=== PATIENT | female | born 1950 | race Caucasian/White ===

== ENCOUNTER 2017-08-25 10:54 | Day surgery (SDC) | payer MEDICARE, OTHER ==
[2017-08-17 10:38] VITALS: BMI 34.0
[~2017-08-25 10:54] MED LIST: ALPRAZolam 0.25 MG TAB PO PRN; ALPRAZolam 0.5 MG TAB PO PRN; ASPIRIN 325 MG TAB PO STA; ATORVASTATIN 80 MG TAB PO STA; NITROGLYCERIN SL TABS 0.4 MG TAB SUBLINGUAL PRN; SODIUM CHLORIDE 0.9% 1,000 ML in EMPTY BAG 1 BAG IV ONE
[2017-08-25 11:37] LABS: Glucose,Whole Blood 175 mg/dL (75-99)
[2017-08-25 11:39] LABS: Anisocytosis Slight; Basophils % (A) 1 %; Eosinophils # (A) 0.2 k/uL (0-0.7); Eosinophils % (A) 3 %; HCT 36.5 % (34.0-46.0); HGB 11.7 gm/dL (11.4-16.0); Lymphocytes # (A) 1.7 k/uL (1.0-4.8); Lymphocytes % (A) 24 %; MCH 26.3 pg (25.0-35.0); MCV 82.1 fL (80.0-100.0); Mean Platelet Volume 7.4; Monocytes # (A) 0.3 k/uL (0-1.0); Monocytes % (A) 4 %; Neutrophils # (A) 4.7 k/uL (1.3-7.7); Neutrophils % (A) 67 %; Platelet Count 210 k/uL (150-450); RBC 4.45 m/uL (3.80-5.40); RDW 16.6 % (11.5-15.5)
[2017-08-25 11:49] LABS: Potassium 4.8 mmol/L (3.5-5.1)
[2017-08-25] MEDS ORDERED: fentaNYL (PF) 50 MCG/ML 2 ML AMP ONE (11:51)
[2017-08-25] MEDS ORDERED: diphenhydrAMINE 50 MG/ML 1 ML VIAL ONE (11:51)
[2017-08-25] MEDS ORDERED: LIDOCAINE 1% INJ 10MG/ML (20 ML MDV) ONE (11:51)
[2017-08-25] MEDS ORDERED: diphenhydrAMINE 50 MG/ML 1 ML VIAL IVP ONE (12:25)
[2017-08-25] MEDS ORDERED: fentaNYL (PF) 50 MCG/ML 2 ML AMP IV ONE (12:27)
[2017-08-25] MEDS ORDERED: LIDOCAINE 1% (PF) 10MG/ML VIAL SQ ONE (12:32)
[2017-08-25] MEDS ORDERED: BIVALIRUDIN 250 MG in SODIUM CHLORIDE 0.9% 50 ML IV ONE (12:45)
[2017-08-25] MEDS ORDERED: BIVALIRUDIN BOLUS 250 MG/50 ML IV ONE (12:45)
[2017-08-25] MEDS ORDERED: IOPAMIDOL-370 125ML BTL INJ ONE (12:55)
[2017-08-25] MEDS ORDERED: ATROPINE SULFATE 0.1 MG/ML 10ML SYRINGE IV PRN (13:05)
[2017-08-25] MEDS ORDERED: RX INFO: IV CONTRAST WAS GIVEN 1 EACH MISC MISCELLANE PRN (13:05)
[2017-08-25] MEDS ORDERED: ZOLPIDEM 5 MG TAB PO PRN (13:05)
[2017-08-25] MEDS ORDERED: NITROGLYCERIN SL TABS 0.4 MG TAB SUBLINGUAL PRN (13:05)
[2017-08-25] MEDS ORDERED: MAG HYDROX/AL HYDROX/SIMETH 30 ML CUP PO PRN (13:05)
[2017-08-25] MEDS ORDERED: SERTRALINE 50 MG TAB PO PRN (13:07)
[2017-08-25] MEDS ORDERED: SODIUM CHLORIDE 0.9% 1,000 ML IV SCH (13:15)
--- NOTE | 2017-08-25 14:23 | CC ---
CARDIAC CATHETERIZATION REPORT Mrs. Steven is a 66-year-old female with known history of hypertension, hyperlipidemia, diabetes mellitus, history of coronary artery disease, who recently had an abnormal myocardial perfusion imaging. In view of her prior history and results of her testing recommendation made regarding cardiac catheterization. The procedures, risks and complication were discussed with the patient who is in full understanding and agreement. 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 Using Xylocaine anesthesia and Seldinger technique, a a 6-Zimbabwean sheath was introduced in the right femoral artery. Selective right and left coronary angiography performed with 6-Zimbabwean 4 bend right and left Chantel catheter. Multiple views of the coronary artery including hemiaxial views obtained. Following that the 6-Zimbabwean right Chantel was used to cannulate the saphenous vein graft to the right coronary artery, diagonal branch and QUINN to LAD. Images of the grafts were obtained. Left ventricle end-diastolic pressure was calculated using the right Chantel catheter. Following that, the catheter was removed. Images were reviewed. FINDINGS: Left Main: This is a large-sized vessel bifurcating into left circumflex, left anterior descending artery. Left main coronary artery has no evidence of high-grade stenosis. Left Anterior Descending Artery: This vessel is totally occluded after the takeoff of the first diagonal branch. There is no antegrade flow. The first diagonal branch has a 70-80% stenosis proximally. The rest of the vessel has no high-grade stenosis. Left Circumflex: This is a nondominant vessel giving rise to proximal obtuse marginal branch. After the takeoff of the first obtuse marginal branch the vessel is totally occluded with slow filling of the second obtuse marginal branch. Right Coronary Artery: This vessel is totally occluded in mid segment with no antegrade flow. QUINN to LAD: This graft is patent. The distal anastomotic site is patent. The flow in the LAD is brisk. Saphenous Vein Graft to the Diagonal Branch: The distal anastomotic site is patent. The flow into the diagonal branch is brisk. There is no evidence of obstructive coronary artery disease. Saphenous Vein Graft to the Right Coronary Artery: The proximal distal anastomotic site are patent. In the mid segment of the body there is a 99% eccentric plaque. The rest of the vessel has mild intimal disease without any evidence of high-grade stenosis. Left Ventriculogram: Left ventriculogram is not performed. Hemodynamics: There was no gradient across the aortic valve. The left ventricle end- diastolic pressure is 60 mmHg. CONCLUSION: 1. Severe triple-vessel disease. 2. Critical stenosis involving the body of the saphenous vein graft to the right coronary artery. 3. Patent QUINN to LAD. 4. Patent saphenous vein graft to diagonal branch. RECOMMENDATION: In view of finding anatomy, I recommend proceeding with angioplasty and stenting of the saphenous vein graft to the right coronary artery. The procedures, risks and complications were discussed with the patient who is in full understanding and agreement. MMODL / IJN: [id number] /
--- NOTE | 2017-08-25 14:26 | PTCA ---
PERCUTANEOUSTRANS CORORONARY ANGIOGRAPHY Ms. Birmingham is a 66-year-old female with known history of coronary disease who presented with abnormal myocardial perfusion imaging was found to have critical stenosis involving the mid segment of the body of the saphenous vein graft to the right coronary artery. In view of that, recommendation was made regarding angioplasty and stenting. The procedures, risks and complications were discussed with the patient who is in full understanding and agreement. PROCEDURE: A 6-English right coronary bypass guiding catheter introduced into the system. After cannulating the ostium of the graft. The 0.014 advanced medium weight J-wire was advanced across the lesion and positioned distally. Then a 3.25 x 12 mm Xience Alpine stent was advanced, deployed and post dilated at 16 atmospheres. After the last inflation, the guidewire and the balloon was withdrawn back in the guiding catheter. Images were obtained and repeated. Those images reveal stable successful stenting. At that point, the guiding catheter, the balloon and the guidewire were removed. The sheath was removed. Hemostasis was obtained with deployment of an Angio-Seal. There was no immediate complication. The patient was returned to her room in stable condition. Of note, the patient had no significant chest discomfort with the inflations. She received Angiomax per protocol. RESULTS: Successful stenting of the body of the saphenous vein graft to the right coronary artery with reduction of stenosis from 99% to 0%. RECOMMENDATION: Patient will be continued on aspirin, Plavix, beta steve, and statin. The importance of dual antiplatelet treatment was discussed with the patient and her family who are in full understanding and agreement. Duration of procedure is 29 minutes. MMOCHOAL / YINGN: [id number] /
[2017-08-25 17:22] VITALS: RESP 16
[2017-08-25] MEDS: CARVEDILOL 12.5 MG TAB PO SCH (17:26)
[2017-08-25 21:05] LABS: Glucose,Whole Blood 177 mg/dL (75-99)
[2017-08-26 06:02] LABS: Glucose,Whole Blood 134 mg/dL (75-99)
[2017-08-26 06:05] LABS: Calcium 8.8 mg/dL (8.4-10.2); Potassium 4.3 mmol/L (3.5-5.1)
[2017-08-26] MEDS: CARVEDILOL 12.5 MG TAB PO SCH (06:27)
--- NOTE | 2017-08-26 08:12 | PN ---
PROGRESS NOTE Mrs. Steven is a 66-year-old female with known history of coronary artery disease status post coronary artery bypass grafting who presented with abnormal myocardial perfusion imaging, underwent cardiac catheterization, was found to have significant obstructive disease involving the saphenous vein graft to the right coronary artery, underwent stenting of that vessel. She is doing well this morning, ambulating without difficulty, denying any chest pain. Her breathing has been stable. She denies any dizziness or palpitation. She has been ambulating. She continues to be on aspirin once a day, amlodipine 10 mg daily, Lipitor 80 mg daily, Coreg 25 mg twice a day, Plavix 75 mg daily, lisinopril 20 mg daily, sertraline 50 mg daily. PHYSICAL EXAMINATION: Blood pressure 134/70 with a heart rate in 60s. LUNGS: Clear. HEART: Regular rate and rhythm. S1, S2. No S3. No rub. ABDOMEN: Soft, nontender. Right groin, no hematoma. LAB DATA: Lab data revealed BUN and creatinine 33 and 1.3, improved compared to yesterday. Potassium 4.3. EKG no acute changes. IMPRESSION: 1. Status post stenting of the saphenous vein graft to the right coronary artery. 2. History of coronary artery bypass grafting. 3. Hypertension. 4. Hyperlipidemia. 5. Diabetes mellitus. RECOMMENDATION: Patient will be able to be discharged home today and followed as an outpatient. MMODL / IJN: [id number] /
[2017-08-26] MEDS ORDERED: ASPIRIN 81 MG PO SCH (09:00)
[2017-08-26] MEDS ORDERED: amLODIPine 10 MG TAB PO SCH (09:00)
[2017-08-26] MEDS ORDERED: CLOPIDOGREL 75 MG TAB PO SCH (09:00)
[2017-08-26] MEDS ORDERED: LISINOPRIL 20 MG TAB PO SCH (09:00)
[2017-08-26] MEDS ORDERED: ATORVASTATIN 80 MG TAB PO SCH (09:00)
[2017-08-26] MEDS ORDERED: Empagliflozin/Linagliptin [Glyxambi 25 Mg-5 Mg Tablet] PO SCH (09:00)
[2017-08-26 09:32] VITALS: BP 134/56; PULSE 80; TEMP 97.2
== END 2017-08-26 10:40 | disposition home or self-care (01) ==
LOC: CATHCVL 10:54 → 6SEL 12:58 → CATHCVL 08-26 10:40
PROVIDERS: ATTEND Internal Medicine Interventional Cardiology
DX: I25.810 Atherosclerosis of coronary artery bypass graft(s) without angina pectoris (principal); I25.10 Atherosclerotic heart disease of native coronary artery without angina pectoris; I25.82 Chronic total occlusion of coronary artery; R00.1 Bradycardia, unspecified; R94.39 Abnormal result of other cardiovascular function study; E11.22 Type 2 diabetes mellitus with diabetic chronic kidney disease; I12.9 Hypertensive chronic kidney disease with stage 1 through stage 4 chronic kidney disease, or unspecified chronic kidney disease; N18.9 Chronic kidney disease, unspecified; E78.2 Mixed hyperlipidemia; Z95.5 Presence of coronary angioplasty implant and graft; Z95.1 Presence of aortocoronary bypass graft; Z82.49 Family history of ischemic heart disease and other diseases of the circulatory system; Z79.02 Long term (current) use of antithrombotics/antiplatelets; Z79.82 Long term (current) use of aspirin; Z79.899 Other long term (current) drug therapy
CPT/HCPCS: 93459; 80048 ×2; 85025; C9604; C1769 ×2; C1760; C1887; C1894; C1874; J1200; J3010; J0583; J2001; Q9967

== ENCOUNTER 2020-01-10 16:47 | Emergency (ER) | payer MEDICARE, OTHER ==
[2020-01-10] MEDS ORDERED: LORazepam 2 MG/ML INJ IV STA (17:05)
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
[2020-01-10 17:37] LABS: Basophils % (A) 1 %; Eosinophils # (A) 0.2 k/uL (0-0.7); Eosinophils % (A) 2 %; HCT 39.6 % (34.0-46.0); Lymphocytes # (A) 2.2 k/uL (1.0-4.8); Lymphocytes % (A) 27 %; MCH 28.2 pg (25.0-35.0); MCHC 32.9 g/dL (31.0-37.0); MCV 85.5 fL (80.0-100.0); Mean Platelet Volume 7.3; Monocytes # (A) 0.3 k/uL (0-1.0); Monocytes % (A) 4 %; Neutrophils # (A) 5.6 k/uL (1.3-7.7); Neutrophils % (A) 66 %; Platelet Count 249 k/uL (150-450); RBC 4.63 m/uL (3.80-5.40); RDW 14.3 % (11.5-15.5); WBC 8.4 k/uL (3.8-10.6)
[2020-01-10 17:46] LABS: Albumin 4.3 g/dL (3.5-5.0); Calcium 9.3 mg/dL (8.4-10.2); Magnesium 1.2 mg/dL (1.6-2.3); Total Bilirubin 1.3 mg/dL (0.2-1.3); Total Protein 8.5 g/dL (6.3-8.2)
[2020-01-10 17:59] LABS: Potassium 4.9 mmol/L (3.5-5.1)
--- NOTE | 2020-01-10 18:08 | XR ---
EXAMINATION TYPE: XR chest 2V DATE OF EXAM: 01/10/2020 COMPARISON: 12/25/2014 HISTORY: Chest pain TECHNIQUE: FINDINGS: There is no heart failure nor confluent pneumonic infiltrate. There are sternal wires. Cost ophrenic angles are clear. Bony thorax is intact. IMPRESSION: No active cardiopulmonary disease. No change.
[2020-01-10 18:17] LABS: Partial Thromboplastin Time 23.1 sec (22.0-30.0); Prothrombin Time 10.4 sec (9.0-12.0)
[2020-01-10] MEDS ORDERED: MAGNESIUM OXIDE 400 MG TAB PO STA (18:29)
[2020-01-10 18:37] VITALS: BP 151/77; PULSE 61; RESP 18; TEMP 98.4
== END 2020-01-10 18:36 | disposition home or self-care (01) ==
LOC: EC 16:47
DX: F41.0 Panic disorder [episodic paroxysmal anxiety] (principal); E83.42 Hypomagnesemia; I25.10 Atherosclerotic heart disease of native coronary artery without angina pectoris; E78.5 Hyperlipidemia, unspecified; I10 Essential (primary) hypertension; I25.2 Old myocardial infarction; M19.90 Unspecified osteoarthritis, unspecified site; Z79.82 Long term (current) use of aspirin; Z79.02 Long term (current) use of antithrombotics/antiplatelets; Z79.899 Other long term (current) drug therapy; Z95.1 Presence of aortocoronary bypass graft; Z95.5 Presence of coronary angioplasty implant and graft
CPT/HCPCS: 36415; 93005; 80053; 83735; 84484; 85025; 85610; 85730; 71046; 99285; 96374; J2060